=== PATIENT | female | born 1975 | race Caucasian/White ===

== ENCOUNTER 2022-06-11 13:20 | Outpatient (CLI) | payer BC, MEDICAID, SELFPAY ==
[2022-06-11 14:35] LABS: Basophils # 0.1 10^3/uL (0.0-0.1); Basophils % 0.6 %; Eosinophils # 0.1 10^3/uL (0.0-0.8); Eosinophils % 1.5 %; Hematocrit 44.3 % (37.0-47.0); Hemoglobin 14.5 g/dL (11.5-15.3); Lymphocytes # 1.9 10^3/uL (0.8-4.8); Lymphocytes % 24.4 %; Mean Corpuscular HGB Conc 32.7 g/dL (30.0-36.0); Mean Corpuscular Hemoglobin 31.9 pg (28.0-34.0); Mean Corpuscular Volume 97.6 fl (81-99); Mean Platelet Volume 10.5 fL (7.4-10.4); Monocytes # 0.6 10^3/uL (0.2-0.9); Monocytes % 7.8 %; Neutrophils # 5.09 10^3/uL (1.8-7.7); Neutrophils % 65.6 %; Nucleated Red Blood Cells % 0 %; Platelet Count 344 10^3/cmm (130-400); Red Blood Count 4.54 10^6/uL (4.1-5.3); Red Cell Distribution Width 13.1 % (12.1-15.1); White Blood Count 7.8 10^3/uL (4.0-10.0)
[2022-06-11 14:54] LABS: Blood Urea Nitrogen 15 mg/dL (6-20); Calcium 9.2 mg/dL (8.5-10.5); Carbon Dioxide 27 mmol/L (22-29); Chloride 103 mmol/L (98-107); Glomerular Filtration Rate 107.6 mL/min (90-130); Glucose 62 mg/dL (65-115); Osmolality Calculated 287 mOsm/kg (285-295); Sodium 139 mmol/L (136-145)
[2022-06-11 14:58] LABS: Anion Gap 13.3 (5-19); Potassium 4.3 mmol/L (3.5-5.1)
== END 2022-06-11 13:21 | disposition home or self-care (01) ==
LOC: LAB 13:24
PROVIDERS: Surgery Plastic and Reconstructive Surgery; Visit Provider Nurse Practitioner Family
DX: N91.2 Amenorrhea, unspecified (principal)
CPT/HCPCS: 36415; 80048; 84702; 85025

== ENCOUNTER 2023-02-22 11:19 | Outpatient (CLI) | payer OTHER, BC, MEDICAID, SELFPAY ==
--- NOTE | 2023-02-22 11:30 | MM_ITS ---
WS: [id number] BILATERAL 3D TOMOSYNTHESIS DIGITAL SCREENING MAMMOGRAPHY WITH CAD CLINICAL INFORMATION: SCREENING HISTORY: Screening mammogram. No current complaints. COMPARISON: Baseline TECHNIQUE: Bilateral CC and MLO views. FINDINGS: The breasts are composed of heterogeneous fibroglandular density tissue, which can limit the detectio n of small underlying mass lesions. No suspicious mass, asymmetry, calcifications, or architectural d istortion. No evidence of malignancy. IMPRESSION: MM/[place] [id number] BI-RADS: 1-Negative FOLLOW UP: 1 Year Follow-up Recommend return to annual screening mammography.
== END 2023-02-22 11:20 | disposition home or self-care (01) ==
PROVIDERS: PCP Family Medicine; Visit Provider Nurse Practitioner Family
DX: Z12.31 Encounter for screening mammogram for malignant neoplasm of breast (principal)
CPT/HCPCS: 77063; 77067

== ENCOUNTER 2024-04-17 11:17 | Outpatient (CLI) | payer OTHER, BC, MEDICAID, SELFPAY ==
--- NOTE | 2024-04-17 11:19 | MM_ITS ---
WS: [email or web address] VIEWS: MLO and CC views both breasts. 3D digital tomosynthesis is also included in this exam. Comparison made with prior exam of 02/22/2023.. Findings: The breasts are heterogeneously dense, which may obscure small masses. Questionable new 15 mm asymmetric density seen in the RIGHT breast at about 12:00 at mid depth. No ar chitectural distortion or suspicious calcification noted. No new finding in the LEFT breast. RIGHT co mpression spot images in the CC and MLO view as well as a 90 degree lateral view would be suggested f or further work-up. Regional ultrasound may also be necessary. MM/MM scr BI tomosynthesis [id number] Impression: BI-RADS: 0 - Incomplete: Need additional imaging evaluation FOLLOW-UP: Need Additional Imaging This mammogram was also analyzed by the Computer Aided Detection System R2 Imag e [employer].
== END 2024-04-17 11:18 | disposition home or self-care (01) ==
LOC: RAD 11:19
PROVIDERS: PCP Family Medicine; Visit Provider Family Medicine
DX: Z12.31 Encounter for screening mammogram for malignant neoplasm of breast (principal); R92.333 Mammographic heterogeneous density, bilateral breasts; N63.12 Unspecified lump in the right breast, upper inner quadrant
CPT/HCPCS: 77063; 77067

== ENCOUNTER 2024-06-25 09:51 | Outpatient (CLI) | payer OTHER, SELFPAY ==
--- NOTE | 2024-06-25 09:53 | MM_ITS ---
WS: [email or web address] VIEWS: MLO, CC, and ML views RIGHT breast only. 3D digital tomosynthesis is also included in this ex am. Comparison made with prior exam of 04/17/2024.. Findings: There are scattered areas of fibroglandular density. There is still a questionable asymmetric density identified in the posterior central RIGHT breast see n best on the MLO and 90 degree lateral views. No suspicious calcification identified. This area is d ifficult to identify on the craniocaudal images. Regional ultrasound of this area is suggested for fu rther work-up. MM/MM diag RT tomosynthesis [id number] Impression: BI-RADS: 0 - Incomplete: Need additional imaging evaluation FOLLOW-UP: See Report This mammogram was also analyzed by the Computer Aided Detection System R2 Imag e Assistant Media Planner.
--- NOTE | 2024-06-25 09:53 | US_ITS ---
WS: [email or web address] Exam: US breast RT limited* [id number] Date/Time of Exam: 06/25/2024 10:29 AM Reason For Exam: ABNORMAL MAMMOGRAM Regional ultrasound of the 12 o'clock position in the RIGHT breast is performed. There was no sign of suspicious solid mass or nodule. No cysts were identified in this area. Recommendations: Follow-up RIGHT mammogram in 6 months for surveillance would be recommended. BI-RADS Category 3. US/US breast RT limited* [id number] IMPRESSION: 1. No suspicious mass or nodule identified with ultrasound.
== END 2024-06-25 09:52 | disposition home or self-care (01) ==
LOC: RAD 09:52
PROVIDERS: PCP Family Medicine; Visit Provider Nurse Practitioner Family
DX: R92.8 Other abnormal and inconclusive findings on diagnostic imaging of breast (principal); R92.323 Mammographic fibroglandular density, bilateral breasts; N64.89 Other specified disorders of breast
CPT/HCPCS: 76642; 77061; G0279

== ENCOUNTER 2025-01-25 09:19 | Outpatient (CLI) | payer OTHER, SELFPAY ==
--- NOTE | 2025-01-25 09:28 | MM_ITS ---
WS: [email or web address] VIEWS: MLO, CC, and ML views with compression spot images RIGHT breast only. 3D digital tomosynthesis is also included in this exam. Comparison made with prior exam of 06/25/2024, 04/17/2024, 02/22/2023.. Findings: The breasts are heterogeneously dense, which may obscure small masses. Again noted is a small asymmetric density in the central RIGHT breast at mid depth almost directly behind the nipple. No definite discrete mass or malignant characteristics is identified. The appearance is stable when compared to mammograms as far back as 02/22/2023. No other significant finding. Continue yearly screening mammography. MM/MM diag RT tomosynthesis [id number] Impression: BI-RADS: 2 - Benign FOLLOW-UP: 1 Year Follow-up This mammogram was also analyzed by the Computer Aided Detection System R2 Imag e Electronic Scale Tester.
== END 2025-01-25 09:20 | disposition home or self-care (01) ==
LOC: RAD 09:22
PROVIDERS: PCP Family Medicine; Visit Provider Nurse Practitioner Family
DX: R92.8 Other abnormal and inconclusive findings on diagnostic imaging of breast (principal); R92.333 Mammographic heterogeneous density, bilateral breasts; N64.89 Other specified disorders of breast
CPT/HCPCS: 77061; G0279